=== PATIENT | female | born 2000 | race Caucasian/White ===

== ENCOUNTER 2024-06-12 07:37 | Emergency (ER) | payer BC, SELFPAY ==
[2024-06-12 07:42] VITALS: BP 128/79
[2024-06-12 07:44] VITALS: BP 128/79
--- NOTE | 2024-06-12 08:05 | ED.GENMED ---
History of Present Illness
General
Chief Complaint: Musculo-Skeletal Complaint
Source: patient
Exam Limitations: none
Time Seen by Provider: 06/12/24 07:57
History of Present Illness
History of Present Illness:
23-year-old female complaining of pain mostly above her left clavicle. Started last week when she got her arms hyperextended and pull up her back on a training session. No numbness tingling weakness in the arms. No unusual headache. No vertigo
or dizziness or equilibrium issues. Pain is worse with lifting her arm. Most of the pain she points to is above the left mid clavicle.
Past History
Past History
ED Past Medical History: None
ED Past Surgical History: Other (teeth)
Social History
Tobacco: Non-smoker
Review of Systems
Review of Systems
All Other Systems: Not applicable
Constitutional: Denies fever
Respiratory: Denies trouble breathing
Neurological: Denies dizzy, headache, weakness or numbness
Phy Exam
Physical Exam
Physical Exam:
GENERAL: Alert and oriented in no apparent distress
EYE: Orbits normal.
NECK: Supple. No posterior tenderness. No neck swelling. No tenderness along the sternocleidomastoid
CARDIAC: Regular rate and rhythm without any obvious murmurs. Mild tenderness above the left mid clavicle however no swelling. No pain with shoulder motion. Some pain in this area with abduction at the shoulder
LUNGS: Clear breath sounds,normal
NEUROLOGICAL: Alert and oriented , grossly non-focal
SKIN: Warm and dry
PSYCH: Normal and appropriate interaction.
Course
Orders/Labs/Results
Orders:
Orders
06/12/24 08:02
CR Cervical Spine 2 or 3 Vw Urgent
Comment:
Reason For Exam: trauma
CXR2 [CR Chest - 2 Views ] Urgent
Comment:
Reason For Exam: trauma
06/12/24 08:44
Sling Left-Treatment ONCE
Vital Signs
Initial and Last Documented VS:
Initial Vital Signs
Temp Pulse Resp BP Pulse Ox
98.0 F 79 18 128/79 97
06/12/24 07:42 06/12/24 07:42 06/12/24 07:42 06/12/24 07:42 06/12/24 07:42
Last Documented Vital Signs
Temp Pulse Resp BP Pulse Ox
98.2 F 78 16 126/78 98
06/12/24 07:44 06/12/24 09:33 06/12/24 09:33 06/12/24 09:33 06/12/24 09:33
MDM/Problems Addressed
Differential Diagnosis Includes:
Patient's symptoms are musculoskeletal in nature. Pain with movement above the left clavicle. No bony deformity or tenderness. No true neck discomfort. No clinical suspicion for vascular issue. Good distal pulses and color. No neurologic
symptoms. Will get x-rays to rule out a small pneumothorax or obvious bony issue which is unlikely. Appears all musculoskeletal.
*Radiology
Radiology exam reviewed: preliminary read by ED provider (Negative)
*Pulse Oximetry
Patient hypoxic: no
*Critical Care Note
Total Time (30-74mins, 75-104mins- exclusive of procedures): Not Applicable
Update Note
Update Note:
Patient reexamined. Pain with abduction at the shoulder again discomfort is mostly above her clavicle towards her trapezius and supraclavicular muscles. Also some pain with flexion at the shoulder. No pain with extension or abduction. She has no
true neck pain. Again nothing suspicious to suspect vascular issue. Appears all musculoskeletal. Symptomatic treatment muscle relaxers sling for comfort and follow-up
ED Attending Note
-
Portions of this chart may have been created with voice recognition software.� Occasional wrong word or��sound alike� substitutions may have occurred due to the inherent limitations of voice recognition software.
Discharge Plan
Departure
Patient Disposition: Home (Routine Discharge)
Date of Disposition: 06/12/24
Time of Disposition: 08:42
Patient with high blood pressure during this ER visit?: Yes
Discharge Problem:
Supraclavicular muscle strain
Instructions: Muscle Strain (DC), BLOOD PRESSURE
Prescriptions:
New
cyclobenzaprine 10 mg tablet
10 mg PO TID PRN (Reason: muscle spasm) Qty: 14 0RF
No Action
loratadine 10 mg Tablet
10 mg PO DAILY PRN (Reason: allergies)
norgestimate-ethinyl estradiol [Wew-Bf-Zcbuhc] 0.18/0.215/0.25 mg-25 mcg tablet
1 tab PO HS
amoxicillin-pot clavulanate 875-125 mg tablet
1 tab PO BID Qty: 20 0RF
methocarbamol 750 mg tablet
750 - 1,500 mg PO Q8H PRN (Reason: muscle spasm) Qty: 20 0RF
Referrals:
NONE,* [Family Provider] -
Angelo Cr MD [Active] - Follow up in 5-7 days
Stand Alone Forms: Return to Work
Activity Restrictions/Additional Instructions:
Advil Motrin or Aleve
You can also add Tylenol
Muscle relaxer for comfort
Take the arm out of the sling 5-6 times a day and rotate the shoulder
Call orthopedics Sunday if symptoms or not significantly improving
Also return immediately with any neurologic symptoms including numbness tingling weakness down the arm, headache etc.
Interventions
Interventions:
*Risk Screen - Suicide Last Done: 06/12/24 07:44
*General Assessment Last Done: 06/12/24 09:35
*Neglect/Abuse Screening Last Done: 06/12/24 07:44
ED- Fall Risk Assessment Last Done: 06/12/24 09:35
*ED COVID-19 Vaccine History Last Done: 06/12/24 09:34
*Nursing Disposition Last Done: 06/12/24 09:35
ED-Musculoskeletal Assessment Last Done: 06/12/24 09:33
Discharge Date and Time
Discharge Date/Time: 06/12/24 09:36
Print Language: ROMANSH
[2024-06-12 09:33] VITALS: BP 126/78
== END 2024-06-12 09:36 | disposition home or self-care (01) ==
LOC: EMR 07:37
PROVIDERS: EMERGENCY PHYSICIAN Emergency Medicine
DX: S16.1XXA Strain of muscle, fascia and tendon at neck level, initial encounter (principal); X50.0XXA Overexertion from strenuous movement or load, initial encounter; R03.0 Elevated blood-pressure reading, without diagnosis of hypertension
CPT/HCPCS: 99283; 71046; 72040